=== PATIENT | male | born 1985 | race Two or more races ===

== ENCOUNTER 2024-10-05 10:24 | Outpatient (CLI) | payer BC ==
[2024-10-05 10:53] LABS: Hematocrit 48.5 % (41.0-53.0); Hemoglobin 16.6 g/dL (13.5-17.5); Mean Corpuscular Hemoglobin 29.5 pg (28.0-32.0); Mean Corpuscular Volume 85.9 fL (80.0-100.0); Nucleated Red Blood Cells % 0.1 %
[2024-10-05 11:02] LABS: Alanine Aminotransferase 24 U/L (7-40); Albumin 4.6 g/dL (3.2-4.8); Alkaline Phosphatase 87 U/L (46-116); Anion Gap 7 (5-15); BUN/Creatinine Ratio 9.5 (10.0-20.0); Bilirubin, Total 1.0 mg/dL (0.2-1.0); Calcium 9.1 mg/dL (8.7-10.4); Carbon Dioxide 29 mmol/L (20-31); Chloride 105 mmol/L (98-107); Cholesterol 98 mg/dL (< 200); Glucose 87 mg/dL (74-106); Potassium 3.8 mmol/L (3.5-5.1); Sodium 141 mmol/L (136-145); Total Protein 6.8 g/dL (5.7-8.2); Triglycerides 70 mg/dL (< 150)
[2024-10-05 11:03] LABS: Blood Urea Nitrogen 9 mg/dL (9-23); HDL Cholesterol 36 mg/dL (40-59)
== END 2024-10-05 17:00 | disposition home or self-care (01) ==
LOC: LAB 10:24
PROVIDERS: ATTEND Nurse Practitioner Family
DX: I10 Essential (primary) hypertension (principal); Z00.01 Encounter for general adult medical examination with abnormal findings
CPT/HCPCS: 36415; 80053; 80061; 84443; 85025

== ENCOUNTER → 2025-01-22 | Outpatient (CLI) | payer BC | END | disposition home or self-care (01) | LOC: LAB 12:17 | PROVIDERS: ATTEND Dermatology | DX: Z01.812 Encounter for preprocedural laboratory examination (principal); L60.3 Nail dystrophy ==